=== PATIENT | female | born 1980 | race Caucasian/White ===

== ENCOUNTER 2019-05-10 11:56 | Day surgery (SDC) | payer MEDICAID ==
[~2019-05-10 11:56] MED LIST: 50% Dextrose in Water 50 ML Syringe IVPUSH PRN; Albuterol 0.083% 2.5 MG/3 ML Neb Soln NEB PRN; Atropine 0.1 MG/ML 10 ML Syringe IVPUSH PRN; EPINEPHrine 1:10,000 1 MG/10 ML Syringe IVPUSH PRN; Lactated Ringers 1,000 ML IV SCH; Naloxone 0.4 MG/ML Syringe IVPUSH PRN; ceFAZolin 2 GM in Premix Bag 1 BAG IV SCH; fentaNYL 100 MCG/2 ML SDV IVPUSH PRN
[2019-05-10] MEDS ORDERED: Bupivacaine 0.5% 30 ML SDV ONE (13:14)
--- NOTE | 2019-05-10 13:18 | PCM.PREANE ---
Preanesthetic Assessment - Anesthesia/Transfusion/Family Hx Anesthesia History: Prior Anesthesia Without Reaction Family History of Anesthesia Reaction: No Transfusion History: No Prior Transfusion(s) Intubation History: Unknown - Review of Systems General: No Symptoms Pulmonary: No Symptoms Cardiovascular: No Symptoms Gastrointestinal: No Symptoms Neurological: No Symptoms Other: Reports: None - Physical Assessment NPO Status Date: 05/09/19 NPO Status Time: 23:00 Vital Signs: Last Vital Signs Temp 36.4 C 05/10/19 12:15 Pulse 98 05/10/19 12:15 Resp 20 05/10/19 12:15 BP 116/77 05/10/19 12:15 Pulse Ox 98 05/10/19 12:15 Height: 5 ft 1 in Weight: 58.06 kg ASA Class: 2 Mental Status: Alert & Oriented x3 Airway Class: Mallampati = 2 Dentition: Reports: Normal Dentition (small chip front upper incisor) Thyro-Mental Finger Breadths: 3 Mouth Opening Finger Breadths: 2 (small mouth) ROM/Head Extension: Full Lungs: Clear to Auscultation, Normal Respiratory Effort Cardiovascular: Regular Rate, Regular Rhythm - Lab Values: Laboratory Last Values Urine HCG, Qual NEGATIVE (NEGATIVE) 05/10/19 12:10 - Allergies Allergies/Adverse Reactions: Allergies Allergy/AdvReac Type Severity Reaction Status Date / Time banana Allergy Cannot Verified 05/05/19 10:12 Remember latex Allergy Rash Verified 05/05/19 10:12 walnut Allergy Cannot Verified 05/05/19 10:12 Remember cantolope Allergy Cannot Uncoded 05/05/19 10:12 Remember honey dew melon Allergy Cannot Uncoded 05/05/19 10:12 Remember - Blood Blood Available: No - Anesthesia Plan Pre-Op Medication Ordered: None - Acknowledgements Anesthesia Type Planned: MAC Pt an Appropriate Candidate for the Planned Anesthesia: Yes Alternatives and Risks of Anesthesia Discussed w Pt/Guardian: Yes Pt/Guardian Understands and Agrees with Anesthesia Plan: Yes PreAnesthesia Questionnaire HEENT History: Reports: Other (See Below) Other HEENT History: wears glasses Gastrointestinal History: Reports: GERD, Hiatal Hernia Musculoskeletal History: Reports: Back Pain, Chronic, Fracture, Fibromyalgia, Neck Pain, Chronic Other Musculoskeletal History: hx of fx leg Neurological History: Reports: Migraines, Neuropathy, Peripheral (toes and fingers), Other (See Below) (unspecified convulsions) Psychiatric History: Reports: Anxiety, Bipolar, Depression, PTSD Oncologic (Cancer) History: Reports: Cervix Dermatologic History: Reports: Other (See Below) Other Dermatologic History: has a rash- not sure if it is Excema or Psoriasis - Past Surgical History Head Surgeries/Procedures: Reports: None GI Surgical History: Reports: EGD Female Surgical History: Reports: Cervical Cryotherapy, Other (See Below) Other Female Surgeries/Procedures: Laparoscopy Musculoskeletal Surgical History: Reports: Ganglion Cyst, Other (See Below) Other Musculoskeletal Surgeries/Procedures:: ganglion cyst removed from foot, repair of hand tendons and ligaments Oncologic Surgical History: Reports: Other (See Below) Other Oncologic Surgeries/Procedures: Cervical Cryotherapy - SUBSTANCE USE Smoking Status *Q: Former Smoker (quit 2 weeks ago) Tobacco Use Within Last Twelve Months: Cigarettes Recreational Drug Use History: Yes - HOME MEDS Home Medications: Home Meds Divalproex Sodium [Depakote] 500 mg PO BEDTIME 05/05/19 [History] LORazepam [Ativan] 0.5 mg PO ASDIRECTED PRN 05/05/19 [History] Naltrexone 3.5 mg PO BEDTIME 05/05/19 [History] Nortriptyline HCl 75 mg PO BEDTIME 05/05/19 [History] QUEtiapine [SEROquel] 100 mg PO BEDTIME 05/05/19 [History] Hydrocodone/Acetaminophen [[place] 5-325 Tablet] 1 each PO TID #21 tablet [Rx] - CURRENT (IN HOUSE) MEDS Current Meds: Current Medications Albuterol (Proventil Neb Soln) 2.5 mg NEB ONETIME PRN PRN Reason: Wheezing Atropine Sulfate (Atropine 0.1 Mg/Ml) 1 mg IVPUSH ASDIRECTED PRN PRN Reason: Hypo-Perfusion Dextrose/Water (Dextrose 50% In Water) 50 ml IVPUSH ASDIRECTED PRN PRN Reason: Hypoglycemia Epinephrine HCl (Epinephrine 1:10,000) 1 mg IVPUSH ASDIRECTED PRN PRN Reason: ACLS Guidelines Fentanyl (Sublimaze) 50 mcg IVPUSH Q5M PRN PRN Reason: Pain Cefazolin Sodium/Dextrose 2 gm (/ Premix) 50 mls @ 100 mls/hr IV ONCALL VERNON Lactated Ringer's (Ringers, Lactated) 1,000 mls @ 100 mls/hr IV ASDIRECTED VERNON Last Admin: 05/10/19 13:05 Dose: 100 mls/hr Naloxone HCl (Narcan) 0.1 mg IVPUSH ASDIRECTED PRN PRN Reason: Respiratory Depression Discontinued Medications Atropine Sulfate (Atropine 0.1 Mg/Ml) 0.5 mg IVPUSH ASDIRECTED PRN PRN Reason: Hypo-perfusion Stop: 05/10/19 07:46
--- NOTE | 2019-05-10 15:44 | PCM.POSTAN ---
POST ANESTHESIA ASSESSMENT - MENTAL STATUS Mental Status: Alert, Oriented - VITAL SIGNS Vital Signs: Last Vital Signs Temp 36.4 C 05/10/19 12:15 Pulse 93 05/10/19 15:32 Resp 20 05/10/19 15:32 BP 117/77 05/10/19 15:32 Pulse Ox 97 05/10/19 15:32 - RESPIRATORY Respiratory Status: Respiratory Rate WNL, Airway Patent, O2 Saturation Stable - CARDIOVASCULAR CV Status: Pulse Rate WNL, Blood Pressure Stable - GASTROINTESTINAL GI Status: No Symptoms - PAIN Pain Score: 0 - POST OP HYDRATION Hydration Status: Adequate & Stable - OBSERVATIONS Free Text/Narrative:: No anesthesia problems.
--- NOTE | 2019-05-10 16:40 | PCM48HPAN ---
Post Anesthesia Note - EVALUATION WITHIN 48HRS OF ANESTHETIC Vital Signs in Normal Range: Yes Patient Participated in Evaluation: Yes Respiratory Function Stable: Yes Airway Patent: Yes Cardiovascular Function Stable: Yes Hydration Status Stable: Yes Pain Control Satisfactory: Yes Nausea and Vomiting Control Satisfactory: Yes Mental Status Recovered: Yes Vital Signs: Last Vital Signs Temp 36.1 C 05/10/19 15:40 Pulse 95 05/10/19 15:40 Resp 16 05/10/19 15:40 BP 139/73 05/10/19 15:40 Pulse Ox 97 05/10/19 15:40 - COMMENTS/OBSERVATIONS Free Text/Narrative:: No anesthesia problems.
--- NOTE | 2019-05-11 16:53 | PCM.OPNOTE ---
- General Post-Op/Procedure Note Date of Surgery/Procedure: 05/11/19 Operative Procedure(s): bilateral open carpal tunnel release Pre Op Diagnosis: bilateral carpal tunnel syndrome Post-Op Diagnosis: Same Anesthesia Technique: Local, Moderate Sedation Primary Surgeon: Cali Montague EBL in mLs: 5 Complications: None Condition: Stable
--- NOTE | 2019-05-11 19:37 | OR ---
SURGEON: Cali Montague DATE OF PROCEDURE: 05/10/2019 PREOPERATIVE DIAGNOSIS: Bilateral carpal tunnel syndrome. POSTOPERATIVE DIAGNOSIS: Bilateral carpal tunnel syndrome. PROCEDURE: Open bilateral carpal tunnel release. PRIMARY SURGEON: Cali Montague DO. ANESTHESIA: MAC local. FLUID: Lactated Ringer's solution. ESTIMATED BLOOD LOSS: 5 mL. COMPLICATION: None. SPECIMEN: None. DISCHARGE DISPOSITION: Stable to PACU. HISTORY AND INDICATIONS FOR THE PROCEDURE: The patient was seen preoperatively in the clinic. She had confirmed bilateral carpal tunnel syndrome. Risks and goals of the procedure were explained to the patient. Informed consent was obtained. DETAILS OF PROCEDURE: The patient was seen preoperatively by myself and the Anesthesia staff in the preoperative holding area where the operative site was marked. She was brought to the operative suite by Anesthesia staff where conscious sedation was administered. Tourniquets which were well-padded were placed on bilateral forearms. The bilateral forearms were then prepped and draped in a sterile manner. Time-out was called identifying the correct patient, the correct procedure, the correct site, and that antibiotics had been given within appropriate period of time. We started with the right hand first. An incision was made proximal to a line extending from the 1st metacarpal and then in line with the radial border of the 4th digit proximally about 1.5 cm. This was carried down to the transverse carpal ligament. A self-retaining retractor was then used. I could visualize the transverse carpal ligament at this point and then incised through with a #15 blade. I then went above and below the deep palmar fascia proximal and distal to the transverse carpal ligament, and then using Ragnell under direct visualization, I incised the deep palmar fascia proximal and distal to the transverse carpal ligament. After this had been accomplished, we then irrigated and then applied a few drops of dexamethasone and then closed with 3-0 nylon mattress sutures followed by Betadine-soaked Adaptic, fluffs, and an Samir wrap. Tourniquet was let down in 7 minutes. The same procedure was done on the left hand except the tourniquet time was 5 minutes. Having accomplished our goals, the patient was allowed to awaken from conscious sedation. Please note that we did apply local anesthetic prior to incision along the area of the incision and then along the area of the deep palmar fascia proximally and distally. [id number] / MODL /[id number]
== END 2019-05-10 17:05 | disposition home or self-care (01) ==
LOC: MW.SDS 11:56
PROVIDERS: ATTEND Orthopaedic Surgery
DX: G56.03 Carpal tunnel syndrome, bilateral upper limbs (principal); F41.9 Anxiety disorder, unspecified; F31.9 Bipolar disorder, unspecified; Z87.891 Personal history of nicotine dependence; Z91.018 Allergy to other foods; Z79.899 Other long term (current) drug therapy
CPT/HCPCS: 64721; 81025; J3490; J7120